=== PATIENT | female | born 1930 | race Caucasian/White ===

== ENCOUNTER 2017-06-15 00:22 | Emergency (ER) | payer MEDICARE, OTHER ==
[2017-06-15] MEDS ORDERED: HumaLOG INSULIN (NovoLOG) PER UNIT As Ordered ONE (09:42)
[2017-06-15] MEDS ORDERED: NALOXONE INJ 0.4 MG/1 ML VIAL (J2310) As Ordered ONE (11:27)
[2017-06-15] MEDS ORDERED: ONDANSETRON 4MG/2ML VIAL (J2405) As Ordered ONE (11:35)
== END 2017-06-15 00:33 | disposition left against medical advice (07) ==
LOC: M ED 00:22
DX: S89.90XA Unspecified injury of unspecified lower leg, initial encounter (principal); Z53.21 Procedure and treatment not carried out due to patient leaving prior to being seen by health care provider